=== PATIENT | female | born 1980 | race Hispanic/Latino ===

== ENCOUNTER 2017-08-04 09:35 | Emergency (ER) | payer OTHER ==
[2017-08-04 09:38] VITALS: BMI 22.6
[2017-08-04 09:41] VITALS: TEMP 98.2
--- NOTE | 2017-08-04 10:06 | ED PDOC ---
Arrival/HPI - General Chief Complaint: Eye Problem Time Seen by Provider: 08/04/17 09:52 Historian: Patient - History of Present Illness Narrative History of Present Illness (Text): 08/04/17 10:00 37 y/o female, no significant pmh, penicillin allergy, c/o painful pimple on the lt. sided face x 3 days. Pt. stated that it started as a small pimple, more painful today, no change in vision, scheduled to see her own opthalmologist in 2 days, no fever or chills, no painful movement of the eye, no rash, no dizziness, no other medical or psychological complaints. Past Medical History - Provider Review Nursing Documentation Reviewed: Yes - Infectious Disease Hx of Infectious Diseases: None - Tetanus Immunization Tetanus Immunization: Unknown - Past Medical History Past Medical History: No Previous - Cardiac Hx Cardiac Disorders: No - Pulmonary Hx Respiratory Disorders: No - Neurological Hx Neurological Disorder: No - HEENT Hx HEENT Disorder: No - Renal Hx Renal Disorder: No - Endocrine/Metabolic Hx Endocrine Disorders: Yes Other/Comment: Hypoglycemia - Hematological/Oncological Hx Blood Disorders: No - Integumentary Hx Dermatological Disorder: No - Musculoskeletal/Rheumatological Hx Musculoskeletal Disorders: No - Gastrointestinal Hx Gastrointestinal Disorders: No - Genitourinary/Gynecological Hx Genitourinary Disorders: No - Psychiatric Hx Psychophysiologic Disorder: No Hx Substance Use: No - Surgical History Hx Orthopedic Surgery: Yes (bunion) Hx Tonsillectomy: Yes Other/Comment: endometrial ablation - Anesthesia Hx Anesthesia: Yes Hx Anesthesia Reactions: No Hx Malignant Hyperthermia: No - Suicidal Assessment Feels Threatened In Home Enviroment: No Family/Social History - Physician Review Nursing Documentation Reviewed: Yes Family/Social History: Unknown Family HX Smoking Status: Heavy Smoker > 10 Cigarettes Daily Hx Alcohol Use: No Hx Substance Use: No Hx Substance Use Treatment: No Allergies/Home Meds Allergies/Adverse Reactions: Allergies metoclopramide HCl [From Reglan] Allergy (Verified 08/04/17 09:38) RASH Penicillins Allergy (Verified 08/04/17 09:38) RASH all cillins Allergy (Severe, Uncoded 08/04/17 09:38) RASH Home Medications: Home Meds Medication Instructions Recorded Confirmed Loratadine [Claritin] 0 mg PO DAILY 08/04/17 08/04/17 Review of Systems - Review of Systems Constitutional: absent: Fatigue, Fevers Eyes: absent: Vision Changes ENT: absent: Hearing Changes Respiratory: absent: SOB, Cough Cardiovascular: absent: Chest Pain Gastrointestinal: absent: Abdominal Pain, Nausea, Vomiting Skin: Skin Lesions. absent: Rash, Pruritis, Laceration, Abscess, Ulcer, Cellulitis Neurological: absent: Headache, Dizziness Psychiatric: absent: Anxiety, Depression Physical Exam Vital Signs Reviewed: Yes Vital Signs Temp Pulse Resp BP Pulse Ox 08/04/17 10:29 78 17 129/80 99 08/04/17 09:41 98.2 F 92 H 18 130/83 96 08/04/17 09:40 98.2 F 85 18 130/83 96 Temperature: Afebrile Blood Pressure: Normal Pulse: Regular Respiratory Rate: Normal Appearance: Positive for: Well-Appearing, Non-Toxic, Comfortable Pain Distress: None Mental Status: Positive for: Alert and Oriented X 3 - Systems Exam Head: Present: Atraumatic, Normocephalic Pupils: Present: PERRL Extroacular Muscles: Present: EOMI Conjunctiva: Present: Normal Ears: Present: NORMAL TM, Normal Canal. No: Erythema Mouth: Present: Moist Mucous Membranes Neck: Present: Normal Range of Motion, Trachea Midline. No: Meningeal Signs, Lymphadenopathy Respiratory/Chest: Present: Clear to Auscultation, Good Air Exchange. No: Respiratory Distress, Accessory Muscle Use Cardiovascular: Present: Regular Rate and Rhythm, Normal S1, S2. No: Murmurs Abdomen: Present: Normal Bowel Sounds. No: Tenderness, Distention, Peritoneal Signs, Rebound, Guarding Upper Extremity: Present: Normal Inspection. No: Cyanosis, Edema Lower Extremity: Present: Normal Inspection. No: Edema Neurological: Present: GCS=15, Speech Normal, Motor Func Grossly Intact, Gait Normal, Memory Normal Skin: Present: Warm, Dry, Rashes (Lt. eyebrow region visible and palpable approx. 0.75cm diameter early non-fluctuant furuncle, no preseptal celluitis, no painful movement of eye, no streaking or ulcers. ), Normal Color Psychiatric: Present: Alert, Oriented x 3, Normal Insight, Normal Concentration Medical Decision Making ED Course and Treatment: 08/04/17 10:08 -Urine hcg is negative. -Discharge home with cleocin, cold compress, take tylenol or motrin at home for pain, follow up with your own pmd and opthalmologist within 2 days, return to the ER for any new or worsening signs or symptoms. - PA / DIRECTOR RADIO / Resident Statement MD/DO has reviewed & agrees with the documentation as recorded. Disposition/Present on Arrival - Present on Arrival Any Indicators Present on Arrival: No History of DVT/PE: No History of Uncontrolled Diabetes: No Urinary Catheter: No History of Decub. Ulcer: No History Surgical Site Infection Following: Orthopedic Procedures, None - Disposition Have Diagnosis and Disposition been Completed?: Yes Diagnosis: Furuncle Disposition: HOME/ ROUTINE Disposition Time: 10:10 Patient Plan: Discharge Patient Problems: Current Active Problems Problem Status Onset Furuncle Acute Condition: GOOD Additional Instructions: -Discharge home with cleocin, cold compress, take tylenol or motrin at home for pain, follow up with your own pmd and opthalmologist within 2 days, return to the ER for any new or worsening signs or symptoms. Prescriptions: Clindamycin [Cleocin] 300 mg PO QID #40 cap Referrals: Caleb Bliss MD [Staff Provider] - Follow up with primary Steve Ramsay MD [Medical Doctor] - Follow up with primary Forms: WORK NOTE
[2017-08-04 10:30] VITALS: BP 129/80; PULSE 78; RESP 17; O2SAT 99
== END 2017-08-04 10:30 | disposition home or self-care (01) ==
LOC: ED 09:35
DX: L02.02 Furuncle of face (principal)

== ENCOUNTER 2018-08-12 14:09 | Emergency (ER) | payer OTHER ==
[2018-08-12 14:25] VITALS: BMI 25.2
--- NOTE | 2018-08-12 15:23 | ED PDOC ---
Arrival/HPI - General Historian: Patient - Critical Care Critical Care Minutes: 45 minutes - History of Present Illness Narrative History of Present Illness (Text): 08/12/18 15:20 38 year old female with a past medical history of hypoglycemia and ovarian cyst presents to the hospital reporting shaking since yesterday morning. Patient states she woke and began to feel like her body was shaking. Patient denies taking anything prior to the symptoms. Patient denies any chest pain, palpitations, recent travel, fevers, chill, nausea, vomiting, headaches, dizziness, syncopal episodes, or any other complaints. PMD:Dr. Cornell Medical history: hypoglycemia, ovarian cysts Surgical history:Tonsillectomy, endometrial ablation, bunion surgery Allergies: metoclopramide, penicillins Social history: 1/2ppd x10 yrs smoking. Denies alcohol or illicit drug use Time/Duration: 24 hours Symptom Onset: Sudden Symptom Course: Unchanged Quality: Other Severity Level: 2 Activities at Onset: Rest Context: Sitting <Evan Gibson - Last Filed: 08/12/18 20:01> <Taras Sharma - Last Filed: 08/12/18 20:30> - General Chief Complaint: ENT Problem Past Medical History - Provider Review Nursing Documentation Reviewed: Yes - Infectious Disease Hx of Infectious Diseases: None - Tetanus Immunization Tetanus Immunization: Unknown - Past Medical History Past Medical History: No Previous - Cardiac Hx Cardiac Disorders: No - Pulmonary Hx Respiratory Disorders: No - Neurological Hx Neurological Disorder: No - HEENT Hx HEENT Disorder: No - Renal Hx Renal Disorder: No - Endocrine/Metabolic Hx Endocrine Disorders: Yes Other/Comment: Hypoglycemia - Hematological/Oncological Hx Blood Disorders: No - Integumentary Hx Dermatological Disorder: No - Musculoskeletal/Rheumatological Hx Musculoskeletal Disorders: No - Gastrointestinal Hx Gastrointestinal Disorders: No - Genitourinary/Gynecological Hx Genitourinary Disorders: No - Psychiatric Hx Psychophysiologic Disorder: No Hx Substance Use: No - Surgical History Hx Orthopedic Surgery: Yes (bunion) Hx Tonsillectomy: Yes Other/Comment: endometrial ablation - Anesthesia Hx Anesthesia: Yes Hx Anesthesia Reactions: No Hx Malignant Hyperthermia: No - Suicidal Assessment Feels Threatened In Home Enviroment: No <Evan Gibson - Last Filed: 08/12/18 20:01> Family/Social History - Physician Review Nursing Documentation Reviewed: Yes Family/Social History: No Known Family HX Smoking Status: Heavy Smoker > 10 Cigarettes Daily Hx Alcohol Use: No Hx Substance Use: No Hx Substance Use Treatment: No <Evan Gibson - Last Filed: 08/12/18 20:01> Allergies/Home Meds <Evan Gibson - Last Filed: 08/12/18 20:01> <Taras Sharma - Last Filed: 08/12/18 20:30> Allergies/Adverse Reactions: Allergies metoclopramide HCl [From Reglan] Allergy (Verified 08/12/18 14:30) RASH Penicillins Allergy (Verified 08/12/18 14:30) RASH all cillins Allergy (Severe, Uncoded 08/12/18 14:30) RASH Home Medications: Home Meds Medication Instructions Recorded Confirmed No Known Home Med 08/12/18 08/12/18 Review of Systems - Physician Review All systems were reviewed & negative as marked: Yes - Review of Systems Constitutional: Other (Shaking for 1 day). absent: Fatigue, Weight Change, Night Sweats Eyes: Normal. absent: Vision Changes, Photophobia ENT: Normal. absent: Hearing Changes, Rhinorrhea Respiratory: Normal. absent: SOB, Cough Cardiovascular: Normal. absent: Chest Pain, Syncope Gastrointestinal: Normal. absent: Abdominal Pain, Vomiting Genitourinary Female: Normal. absent: Dysuria, Frequency Musculoskeletal: Normal. absent: Arthralgias, Back Pain Skin: Normal. absent: Rash, Pruritis, Cellulitis Neurological: Normal. absent: Headache, Dizziness, Disequilibrium, Seizure Endocrine: Normal. absent: Diaphoresis, Polyuria, Polydipsia Hemo/Lymphatic: Normal. absent: Adenopathy, Easy Bleeding Psychiatric: Normal. absent: Anxiety, Depression <Evan Gibson - Last Filed: 08/12/18 20:01> Physical Exam Vital Signs Temp Pulse Resp BP Pulse Ox 08/12/18 14:15 97.7 F 85 18 137/83 98 <Evan Gibson - Last Filed: 08/12/18 20:01> Vital Signs Temp Pulse Resp BP Pulse Ox 08/12/18 14:15 97.7 F 85 18 137/83 98 <Taras Sharma - Last Filed: 08/12/18 20:30> Medical Decision Making ED Course and Treatment: 08/12/18 15:40 38 year old female presents to the hospital with shaking. Plan: CBC/CMP Chest xray EKG U/A IV Fluid bolus NS Xanax 08/12/18 18:48 EKG: no acute st-t changes CXR: negative for active disease Patient re-evaluated and symptoms improved and stable for discharge. - RAD Interpretation Radiology Orders: 08/12/18 15:17 CHEST PORTABLE [RAD] Stat - Medication Orders Current Medication Orders: Alprazolam (Xanax) 0.25 mg PO STAT STA; Protocol Stop: 08/12/18 15:19 <Evan Gibson - Last Filed: 08/12/18 20:01> ED Course and Treatment: Seen and examined with resident. 08/12/18 15:35 Historic Attestation: Patient is a 38 year old female who presents to the emergency department complaining of shaking since yesterday morning. Physical Exam Attestation: Neurologic: Alert, no focal deficit. Symptoms resolved after Xanax. Instructed f/u with GI and PMD. - RAD Interpretation Radiology Orders: 08/12/18 15:17 CHEST PORTABLE [RAD] Stat - Medication Orders Current Medication Orders: Discontinued Medications Alprazolam (Xanax) 0.25 mg PO STAT STA; Protocol Stop: 08/12/18 15:19 <Taras Sharma - Last Filed: 08/12/18 20:30> Disposition/Present on Arrival - Present on Arrival Any Indicators Present on Arrival: No History of DVT/PE: No History of Uncontrolled Diabetes: No Urinary Catheter: No History of Decub. Ulcer: No History Surgical Site Infection Following: Orthopedic Procedures, None - Disposition Have Diagnosis and Disposition been Completed?: Yes Disposition Time: 18:49 Patient Plan: Discharge <Evan Gibosn - Last Filed: 08/12/18 20:01> <Taras Sharma - Last Filed: 08/12/18 20:30> - Disposition Diagnosis: Anxiety Disposition: HOME/ ROUTINE Condition: IMPROVED Referrals: Sabas Fraga MD [Primary Care Provider] - Follow up with primary Forms: [employer] (Portuguese)
[2018-08-12] MEDS ORDERED: Sodium Chloride 0.9% 500 ML IV STA (15:36)
[2018-08-12 15:46] LABS: BASO # 0.04 K/mm3 (0.0-2.0); BASO % 0.4 % (0.0-3.0); EOS # 0.1 (0.0-0.7); EOS % 0.6 % (1.5-5.0); HEMOGLOBIN 14.3 g/dL (12.0-16.0); LYMPH # 2.6 (1.2-3.4); LYMPH % 23.5 % (22.0-35.0); MEAN CELL VOLUME 90.7 fl (80.0-105.0); MEAN CORPUSCULAR HEMOGLOBIN 30.8 pg (25.0-35.0); MEAN PLATELET VOLUME 9.5 fl (7.0-11.0); MONO # 0.7 (0.1-0.6); MONO % 6.2 % (1.0-6.0); RBC 4.64 10^6/uL (3.5-6.1); RED CELL DISTRIBUTION WIDTH 13.8 % (11.5-14.5); WHITE BLOOD COUNT 10.9 10^3/uL (4.5-11.0)
[2018-08-12 16:09] LABS: ALB/GLOB RATIO 1.1 (1.1-1.8); ALBUMIN 4.2 g/dL (3.0-4.8); ALT/SGPT 15 U/L (7-56); AST/SGOT 22 U/L (14-36); BLOOD UREA NITROGEN 16 mg/dL (7-21); CALCIUM 9.5 mg/dL (8.4-10.5); GFR NON-AFRICAN AMERICAN > 60
[2018-08-12 16:15] LABS: URINE BILIRUBIN NEGATIVE (NEGATIVE); URINE BLOOD MODERATE (NEGATIVE); URINE GLUCOSE (UA) NEGATIVE (NEGATIVE); URINE LEUKOCYTE ESTERASE NEGATIVE Leu/uL (NEGATIVE); URINE PROTEIN NEGATIVE mg/dL (<30 mg/dL); URINE UROBILINOGEN 0.2 E.U./dL (<1 E.U./dL)
[2018-08-12 16:16] LABS: URINE APPEARANCE CLEAR (CLEAR); URINE COLOR LIGHT YELLOW (YELLOW)
[2018-08-12 18:34] VITALS: RESP 18; O2SAT 98
[2018-08-12 18:58] VITALS: BP 124/76; PULSE 68; TEMP 98
--- NOTE | 2018-08-12 21:55 | CARD ---
APPROVED REPORT Date of service: 08/12/2018 EKG Measurement Heart [id number] <Conclusion> Normal sinus rhythm Possible Anterior infarct, age undetermined Abnormal ECG
--- NOTE | 2018-08-13 09:27 | RAD ---
Date of service: 08/12/2018 HISTORY: r/o pneumothorax COMPARISON: 01/27/2015 FINDINGS: LUNGS: No active pulmonary disease. PLEURA: No significant pleural effusion identified, no pneumothorax apparent. CARDIOVASCULAR: No aortic atherosclerotic calcification present. Normal cardiac size. No pulmonary vascular congestion. OSSEOUS STRUCTURES: No significant abnormalities. VISUALIZED UPPER ABDOMEN: Normal. OTHER FINDINGS: None. IMPRESSION: No active disease.
== END 2018-08-12 18:57 | disposition home or self-care (01) ==
LOC: ED 14:09
DX: F41.9 Anxiety disorder, unspecified (principal)
CPT/HCPCS: 71045; 80053; 81001; 81025; 82948; 85025; 93005; 96360; 99284; J7040

== ENCOUNTER 2018-10-07 20:31 | Emergency (ER) | payer OTHER ==
[2018-10-07 21:43] VITALS: BMI 23.0
--- NOTE | 2018-10-07 21:55 | ED PDOC ---
Arrival/HPI <Genny Tariq - Last Filed: 10/12/18 21:02> - General Historian: Patient - History of Present Illness Narrative History of Present Illness (Text): 10/07/18 21:55 Tali Bennett is a 38 year old female, with no significant past medical history, who presents to the ED complaining of abdominal pain. Patient states she has been experiencing epigastric pain for the past day with associated chills. Patient states she took Advil at home prior to arrival with no significant improvement. Patient denies any chest pain, shortness of breath, nausea, vomiting, diarrhea, urinary symptoms, back pain, neck pain, headache, dizziness, or any other complaints. Symptom Onset: Gradual Symptom Course: Unchanged Activities at Onset: Light Context: Home <Charles Ridley - Last Filed: 10/12/18 22:37> - General Chief Complaint: Abdominal Pain Time Seen by Provider: 10/07/18 21:42 Past Medical History - Provider Review Nursing Documentation Reviewed: Yes - Infectious Disease Hx of Infectious Diseases: None - Tetanus Immunization Tetanus Immunization: Unknown - Past Medical History Past Medical History: No Previous - Cardiac Hx Cardiac Disorders: No - Pulmonary Hx Respiratory Disorders: No - Neurological Hx Neurological Disorder: No - HEENT Hx HEENT Disorder: No - Renal Hx Renal Disorder: No - Endocrine/Metabolic Hx Endocrine Disorders: Yes Other/Comment: Hypoglycemia - Hematological/Oncological Hx Blood Disorders: No - Integumentary Hx Dermatological Disorder: No - Musculoskeletal/Rheumatological Hx Musculoskeletal Disorders: No - Gastrointestinal Hx Gastrointestinal Disorders: No - Genitourinary/Gynecological Hx Genitourinary Disorders: No - Psychiatric Hx Psychophysiologic Disorder: No Hx Substance Use: No - Surgical History Hx Orthopedic Surgery: Yes (bunion) Hx Tonsillectomy: Yes Other/Comment: endometrial ablation - Anesthesia Hx Anesthesia: Yes Hx Anesthesia Reactions: No Hx Malignant Hyperthermia: No - Suicidal Assessment Feels Threatened In Home Enviroment: No <Charles Ridley - Last Filed: 10/12/18 22:37> Family/Social History - Physician Review Nursing Documentation Reviewed: Yes Family/Social History: Unknown Family HX Smoking Status: Heavy Smoker > 10 Cigarettes Daily Hx Alcohol Use: No Hx Substance Use: No Hx Substance Use Treatment: No <Charles Ridley - Last Filed: 10/12/18 22:37> Allergies/Home Meds <Genny Tariq - Last Filed: 10/12/18 21:02> <KeyanaCharles - Last Filed: 10/12/18 22:37> Allergies/Adverse Reactions: Allergies metoclopramide HCl [From Reglan] Allergy (Verified 10/07/18 21:43) RASH Penicillins Allergy (Verified 10/07/18 21:43) RASH all cillins Allergy (Severe, Uncoded 10/07/18 21:43) RASH Review of Systems - Physician Review All systems were reviewed & negative as marked: Yes - Review of Systems Constitutional: Other (+chills) Eyes: Normal ENT: Normal Respiratory: Normal. absent: SOB, Cough Cardiovascular: Normal. absent: Chest Pain Gastrointestinal: Abdominal Pain. absent: Diarrhea, Vomiting Genitourinary Female: Normal. absent: Dysuria, Frequency, Hematuria, Urine Output Changes Musculoskeletal: Normal. absent: Back Pain, Neck Pain Skin: Normal. absent: Rash Neurological: Normal. absent: Headache, Dizziness Endocrine: Normal Hemo/Lymphatic: Normal Psychiatric: Normal <Charles Ridley - Last Filed: 10/12/18 22:37> Physical Exam Vital Signs Temp Pulse Resp BP Pulse Ox 10/08/18 01:00 74 18 128/73 100 10/07/18 21:43 98.5 F 85 18 123/77 100 <Genny Tariq - Last Filed: 10/12/18 21:02> Vital Signs Reviewed: Yes Vital Signs Temp Pulse Resp BP Pulse Ox 10/07/18 21:43 98.5 F 85 18 123/77 100 Temperature: Afebrile Blood Pressure: Normal Pulse: Regular Respiratory Rate: Normal Appearance: Positive for: Well-Appearing, Non-Toxic, Comfortable Pain Distress: None Mental Status: Positive for: Alert and Oriented X 3 - Systems Exam Head: Present: Atraumatic, Normocephalic Pupils: Present: PERRL Extroacular Muscles: Present: EOMI Conjunctiva: Present: Normal Mouth: Present: Moist Mucous Membranes Neck: Present: Normal Range of Motion Respiratory/Chest: Present: Clear to Auscultation, Good Air Exchange. No: Respiratory Distress, Accessory Muscle Use Cardiovascular: Present: Regular Rate and Rhythm, Normal S1, S2. No: Murmurs Abdomen: Present: Tenderness (Epigastric tenderness). No: Distention, Peritoneal Signs Back: Present: Normal Inspection Upper Extremity: Present: Normal Inspection. No: Cyanosis, Edema Lower Extremity: Present: Normal Inspection. No: Edema Neurological: Present: GCS=15, CN II-XII Intact, Speech Normal Skin: Present: Warm, Dry, Normal Color. No: Rashes Psychiatric: Present: Alert, Oriented x 3, Normal Insight, Normal Concentration <Charles Ridley - Last Filed: 10/12/18 22:37> Medical Decision Making - Lab Interpretations Microbiology Results: Microbiology Results 10/07/18 22:08 Urine,Clean Catch Urine Culture - Final Streptococcus anginosus group Lab Results: PT 11.9 SECONDS (9.4-12.5) 10/07/18 22:53 INR 1.07 10/07/18 22:53 APTT 35.6 Seconds (26.9-38.3) 10/07/18 22:53 Total Bilirubin 0.6 mg/dL (0.2-1.3) 10/07/18 22:53 AST 25 U/L (14-36) 10/07/18 22:53 ALT 13 U/L (7-56) 10/07/18 22:53 Alkaline Phosphatase 73 U/L (38-126) 10/07/18 22:53 Total Protein 8.5 g/dL (5.8-8.3) H 10/07/18 22:53 Albumin 4.8 g/dL (3.0-4.8) 10/07/18 22:53 Globulin 3.6 gm/dL 10/07/18 22:53 Albumin/Globulin Ratio 1.3 (1.1-1.8) 10/07/18 22:53 Lipase 53 U/L (23-300) 10/07/18 22:53 Urine Color Yellow (YELLOW) 10/07/18 22:08 Urine Appearance Sl cloudy (CLEAR) 10/07/18 22:08 Urine pH 6.0 (4.7-8.0) 10/07/18 22:08 Ur Specific [place] >= 1.030 (1.005-1.035) 10/07/18 22:08 Urine Protein 30 mg/dL (<30 mg/dL) H 10/07/18 22:08 Urine Glucose (UA) Negative mg/dL (NEGATIVE) 10/07/18 22:08 Urine Ketones Negative mg/dL (NEGATIVE) 10/07/18 22:08 Urine Blood Moderate (NEGATIVE) H 10/07/18 22:08 Urine Nitrate Negative (NEGATIVE) 10/07/18 22:08 Urine Bilirubin Negative (NEGATIVE) 10/07/18 22:08 Urine Urobilinogen 0.2 E.U./dL (<1 E.U./dL) 10/07/18 22:08 Ur Leukocyte Esterase Negative Vicky/uL (NEGATIVE) 10/07/18 22:08 Urine RBC 15 - 20 /hpf (0-2) H 10/07/18 22:08 Urine WBC 5 - 10 /hpf (0-6) H 10/07/18 22:08 Ur Epithelial Cells 10 - 12 /hpf (0-5) H 10/07/18 22:08 Urine Bacteria Mod /hpf (NONE) 10/07/18 22:08 - RAD Interpretation Radiology Orders: 10/07/18 22:09 GALL BLADDER [US] Stat 10/08/18 00:16 ABD & PELVIS IV CONTRAST ONLY [CT] Stat - Medication Orders Current Medication Orders: Discontinued Medications Diphenhydramine HCl (Benadryl) 25 mg IVP ONCE ONE Stop: 10/07/18 23:36 Last Admin: 10/07/18 23:45 Dose: 25 mg IVP Administration Document 10/07/18 23:45 AD (Rec: 10/08/18 00:06 AD [id number]) Charges for Administration # of IVP Administrations 1 Famotidine (Pepcid) 20 mg IVP STAT STA Stop: 10/07/18 21:58 Last Admin: 10/07/18 22:30 Dose: 20 mg IVP Administration Document 10/07/18 22:30 AD (Rec: 10/07/18 22:57 AD [id number]) Charges for Administration # of IVP Administrations 1 Sodium Chloride (Sodium Chloride 0.9%) 1,000 mls @ 100 mls/hr IV .Q10H STA Stop: 10/08/18 07:56 Last Admin: 10/07/18 22:30 Dose: 100 mls/hr eMAR Start Stop Document 10/07/18 22:30 AD (Rec: 10/07/18 22:57 AD [id number]) Intravenous Solution Start Date 10/07/18 Start Time 22:30 Pantoprazole Sodium (Protonix Inj) 40 mg IVP STAT STA Stop: 10/07/18 21:58 Last Admin: 10/07/18 22:30 Dose: 40 mg IVP Administration Document 10/07/18 22:30 AD (Rec: 10/07/18 22:57 AD [id number]) Charges for Administration # of IVP Administrations 1 <TariqGenny Satinder - Last Filed: 10/12/18 21:02> ED Course and Treatment: 10/07/18 21:55 Impression: 38 year old female complaining of epigastric pain and chills. Plan: -- US Gallbladder -- Labs, lipase -- Urinalysis, urine cultures -- IV fluids -- Pepcid -- Protonix -- Reassess and disposition Prior Visits: Notes and results from previous visits were reviewed. Progress Notes: 10/07/18 23:51 US Gallbladder: LIVER: Within normal limits in size and echogenicity. No mass. GALLBLADDER: The gallbladder appears within normal limits. No gallbladder wall thickening or pericholecystic fluid. COMMON BILE DUCT: No dilation. 3 mm. PANCREAS: The visualized pancreas appears within normal limits. The distal pancreas is obscured by bowel gas. RIGHT KIDNEY: Unremarkable. 10.3 cm. Normal renal contours. No renal mass or calculus. No hydronephrosis. IMPRESSION: Unremarkable right upper quadrant ultrasound. Electronically signed on October 07, 2018 10:36:04 PM EDT by: Sriram Holley M.D., M.B.A., Certified By [employer] Trained MRI and CT Specialist 10/08/18 03:20 CT Abdomen and Pelvis: LUNG BASES: The lung bases appear clear. No pleural effusions are seen. LIVER: Unremarkable. GALLBLADDER AND BILE DUCTS: The gallbladder appears within normal limits. No radioopaque gallstones are seen. No biliary ductal dilatation is evident. PANCREAS: Unremarkable. SPLEEN: Unremarkable. ADRENAL GLANDS: Unremarkable. KIDNEYS, URETERS, AND BLADDER: The kidneys appear within normal limits. There is no hydronephrosis or hydroureter. No urinary calculi are seen. STOMACH AND BOWEL: Unremarkable appearance of the stomach and bowel. No evidence of bowel obstruction. No evidence suggesting enteritis or colitis. APPENDIX: No evidence of acute appendicitis on CT examination. PERITONEUM: No free fluid. No free air. LYMPH NODES: No lymphadenopathy is evident. REPRODUCTIVE: 4 x 3.5 cm left ovarian cyst is seen. The uterus and ovaries are otherwise unremarkable. Consider follow up with US. VASCULATURE: No evidence of abdominal aortic aneurysm. BONES: No aggressive appearing osseous lesion. No acute osseous pathology evident. IMPRESSION: 4 x 3.5 cm left ovarian cyst is seen. Consider follow up with US. Electronically signed on October 08, 2018 3:18:26 AM EDT by: Sriram Holley M.D., M.B.A., Certified By [employer] Trained MRI and CT Specialist - Lab Interpretations I have reviewed the lab results: Yes - RAD Interpretation Architectural Design Lecturer: Radiologist <Charles Ridley - Last Filed: 10/12/18 22:37> - Scribe Statement The provider has reviewed the documentation as recorded by the Dianne Gross Provider Scribe Attestation: All medical record entries made by the Scribe were at my direction and personally dictated by me. I have reviewed the chart and agree that the record accurately reflects my personal performance of the history, physical exam, medical decision making, and the department course for this patient. I have also personally directed, reviewed, and agree with the discharge instructions and disposition. <Charles Ridley - Last Filed: 10/12/18 22:37> Disposition/Present on Arrival - Notes Notes (Text): 10/12/18 20:03 Urine cx +strep anginosus sensitive to pcn and 3rd gen cephalosporins. Pt called, message left to call back the ER. Needs a 2nd call. 10/12/18 21:02 Pt called back, results d/w the patient, Rx vantin. Advised to f/u w/ pmd without fail in 1-2 days. <Genny Tariq - Last Filed: 10/12/18 21:02> - Present on Arrival Any Indicators Present on Arrival: No History of DVT/PE: No History of Uncontrolled Diabetes: No Urinary Catheter: No History of Decub. Ulcer: No History Surgical Site Infection Following: Orthopedic Procedures, None - Disposition Have Diagnosis and Disposition been Completed?: Yes Disposition Time: 03:50 <Charles Ridley - Last Filed: 10/12/18 22:37> - Disposition Diagnosis: Gastritis Disposition: HOME/ ROUTINE Condition: GOOD Discharge Instructions (ExitCare): Gastritis (DC) Prescriptions: Cefpodoxime [Vantin] 200 mg PO BID #14 tab Sucralfate [Carafate] 1 gm PO QID #32 tab Forms: [employer] (Belgian)
[2018-10-07 21:56] VITALS: RESP 18; TEMP 98.5; O2SAT 100
[2018-10-07] MEDS ORDERED: Sodium Chloride 0.9% 1,000 ML IV STA (21:57)
[2018-10-07 22:25] LABS: URINE BILIRUBIN NEGATIVE (NEGATIVE); URINE BLOOD MODERATE (NEGATIVE); URINE GLUCOSE (UA) NEGATIVE (NEGATIVE); URINE LEUKOCYTE ESTERASE NEGATIVE Leu/uL (NEGATIVE); URINE PROTEIN 30 mg/dL (<30 mg/dL); URINE UROBILINOGEN 0.2 E.U./dL (<1 E.U./dL)
[2018-10-07 22:40] LABS: URINE APPEARANCE SL CLOUDY (CLEAR); URINE COLOR YELLOW (YELLOW); URINE RBC 15 - 20 /hpf (0-2)
[2018-10-07 22:41] LABS: URINE BACTERIA MOD /hpf
[2018-10-07 23:00] LABS: BASO # 0.03 K/mm3 (0.0-2.0); BASO % 0.2 % (0.0-3.0); EOS # 0.1 (0.0-0.7); EOS % 0.6 % (1.5-5.0); HEMOGLOBIN 15.4 g/dL (12.0-16.0); LYMPH # 3.2 (1.2-3.4); LYMPH % 22.3 % (22.0-35.0); MEAN CELL VOLUME 89.8 fl (80.0-105.0); MEAN CORPUSCULAR HEMOGLOBIN 30.7 pg (25.0-35.0); MEAN CORPUSCULAR HGB CONC 34.2 g/dl (31.0-37.0); MEAN PLATELET VOLUME 9.7 fl (7.0-11.0); MONO # 0.8 (0.1-0.6); MONO % 5.7 % (1.0-6.0); RBC 5.01 10^6/uL (3.5-6.1); RED CELL DISTRIBUTION WIDTH 13.7 % (11.5-14.5); WHITE BLOOD COUNT 14.4 10^3/uL (4.5-11.0)
[2018-10-07 23:07] LABS: INR 1.07; PARTIAL THROMBOPLASTIN TIME 35.6 Seconds (26.9-38.3); PROTHROMBIN TIME 11.9 SECONDS (9.4-12.5)
[2018-10-07 23:09] LABS: ALB/GLOB RATIO 1.3 (1.1-1.8); ALBUMIN 4.8 g/dL (3.0-4.8); ALT/SGPT 13 U/L (7-56); AST/SGOT 25 U/L (14-36); BLOOD UREA NITROGEN 14 mg/dL (7-21); CALCIUM 9.4 mg/dL (8.4-10.5); GFR NON-AFRICAN AMERICAN > 60; LIPASE 53 U/L (23-300)
[2018-10-07] MEDS ORDERED: DiphenhydrAMINE 50 mg/ml Inj IVP ONE (23:35)
[2018-10-08] MEDS ORDERED: Iohexol 350 MG/100 ML VIAL ONE (01:45)
[2018-10-08 06:25] VITALS: BP 128/73; PULSE 74
--- NOTE | 2018-10-08 08:25 | US ---
Date of service: 10/07/2018 HISTORY: abd pain COMPARISON: CT abdomen and pelvis 08/07/2014 TECHNIQUE: Sonographic evaluation of the right upper quadrant of the abdomen. FINDINGS: LIVER: Measures 16.4 cm in length. Normal echogenicity of the liver parenchyma. No mass. No intrahepatic bile duct dilatation. GALLBLADDER: Unremarkable. No gallstones. COMMON BILE DUCT: Measures 24 to 28 mm. No stones. No dilatation. PANCREAS: Unremarkable as visualized. No mass. No ductal dilatation. RIGHT KIDNEY: Measures 10.3 cm in length. Normal echogenicity. No calculus, mass, or hydronephrosis. AORTA: No aneurysmal dilatation. IVC: Unremarkable. OTHER FINDINGS: None . IMPRESSION: Negative
--- NOTE | 2018-10-08 09:18 | CT ---
Date of service: 10/08/2018 PROCEDURE: CT Abdomen and Pelvis with contrast HISTORY: abd pain COMPARISON: None. TECHNIQUE: Contrast dose: 100 cc of Omni 350 Radiation dose: Total exam DLP = 276.05 mGy-cm. This CT exam was performed using one or more of the following dose reduction techniques: Automated exposure control, adjustment of the mA and/or kV according to patient size, and/or use of iterative reconstruction technique. FINDINGS: LOWER THORAX: Unremarkable. LIVER: Unremarkable. No gross lesion or ductal dilatation. GALLBLADDER AND BILE DUCTS: Unremarkable. PANCREAS: Unremarkable. No gross lesion or ductal dilatation. SPLEEN: Unremarkable. ADRENALS: Unremarkable. No mass. KIDNEYS AND URETERS: Unremarkable. No hydronephrosis. No solid mass. VASCULATURE: Unremarkable. No aortic aneurysm. No aortic atherosclerotic calcification or mural plaque present. BOWEL: Unremarkable. No obstruction. No gross mural thickening. APPENDIX: Normal appendix. PERITONEUM: Minimal fluid in the cul-de-sac LYMPH NODES: Unremarkable. No enlarged lymph nodes. BLADDER: Unremarkable. REPRODUCTIVE: There is a 3.5 x 4 cm left ovarian cyst. BONES: No acute fracture. OTHER FINDINGS: The report concurs with the preliminary [facility] report IMPRESSION: 3.5 x 4 cm left ovarian cyst. Minimal fluid in the cul-de-sac. No acute intra-abdominal findings
== END 2018-10-08 03:50 | disposition home or self-care (01) ==
LOC: ED 20:31
DX: K29.70 Gastritis, unspecified, without bleeding (principal)
CPT/HCPCS: 74177; 76705; 80053; 81001; 81025; 83690; 83735; 85025; 85610; 85730; 87086; 96374; 96375; 99284; C9113; J1200; J7030; Q9967